=== PATIENT | male | born 2000 | race Caucasian/White ===

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

== ENCOUNTER 2025-02-15 11:30 | Inpatient (IN) ==
[2025-02-15 12:11] LABS: Appearance Urine Clear (Clear); Glucose Urine UA Negative (Negative)
[2025-02-15 12:47] LABS: Hematocrit (blood only) 46.2 % (42.0-52.0); Hemoglobin 15.8 g/dl (14.0-18.0); Immature Granulocytes # (auto) 0.02 K/uL (0.01-0.20); Immature Granulocytes % (auto) 0.2 %; Mean Corpuscular Hemoglobin 28.8 pg (25.0-34.0); Mean Corpuscular Volume 84.3 fL (80.0-100.0); Platelet Count 353 K/uL (130-400); RDW Standard Deviation 36.8 fL (36.4-46.3); Red Blood Count 5.48 M/uL (4.70-6.10); White Blood Count 9.65 K/ul (4.8-10.8)
[2025-02-15 13:00] LABS: Amphetamines+Metham, Urine Neg (Neg); MDMA (Ecstacy), Urine Neg (Neg); Marijuana, Urine Neg (Neg)
[2025-02-15 13:06] LABS: Acetaminophen < 3 ug/ml (10-30); Salicylate < 3.0 mg/dl (3.0-30)
[2025-02-15 13:15] LABS: Albumin Globulin Ratio 1.6 (0.9-2); Anion Gap 14.0 (3-11); Bilirubin,Total 1.7 mg/dl (0.2-1.0); Globulin 3.4 gm/dl (2.5-4.0); Glucose 83.0 mg/dl (70-99(Fasting)); Potassium 4.2 mmol/L (3.5-5.1); Sodium 136.0 mmol/L (136-145); Total Protein 8.7 gm/dl (6.0-8.3)
[2025-02-15 13:19] LABS: Thyroid Stimulating Hormone 1.214 uIu/ml (0.300-4.500)
--- NOTE | 2025-02-15 13:42 | Emergency Department Note ---
History of Present Illness General Chief complaint: Anxiety Stated complaint: LOSS OF APETITE AND ANXIETY/DEPRESSION/WEAKNESS Time Seen by Provider: 02/15/25 11:45 History of Present Illness Provider complaint: Mental health evaluation Maximum Pain Intensity: 2 24-year-old male presents emergency department for mental health evaluation. Patient presents emergency department with his parents. Patient states he is "having a psychological break". He states his has been going on for the last month. Patient states is causing him to eat less. He states he thinks one of his triggers are screen time. He reports suicidal ideation. Patient states he is "bad at existing in life." Home Medications Medication Instructions Recorded Confirmed Type DESLORATADINE (Clarinex) 5 mg PO DAILY ##0 04/23/17 History LORAZEPAM (ATIVAN) 0.5 mg PO TID Anxiety #0 tabs 04/23/17 History MONTELUKAST SODIUM (SINGULAIR) 10 mg PO DAILY ##0 04/23/17 History LAMOTRIGINE 25 mg PO QAM #30 tabs 04/26/17 Rx VENLAFAXINE HCL (EFFEXOR XR) 1 cap PO BID #60 caps 04/26/17 Rx Allergies Allergy/AdvReac Type Severity Reaction Status Date / Time cashew nut Allergy Mild Unverified 04/23/17 00:49 cat dander Allergy Mild Unverified 04/23/17 00:49 dog dander Allergy Mild Unverified 04/23/17 00:49 peanut Allergy Mild Unverified 04/23/17 00:49 walnut Allergy Mild Unverified 04/23/17 00:49 mold Allergy Unknown unknown Verified 07/04/14 07:54 ragweed pollen Allergy Unknown unknown Verified 07/04/14 07:54 Past Med/Surg History Problem List (Updated 02/15/25 @ 17:43 by Duncan Garrett MD) Acute anxiety (Acute) Environmental allergies (Chronic) Dehydration (Acute) Vomiting (Acute) Medical History Asthma, exercise induced Generalized anxiety disorder Depression Social History Smoking Status: Former smoker Preferred Language: Nepali Feels Safe at Home: Yes Gender Identity: Male Physical Exam Vital Signs Vital Signs - 24 hr 02/15/25 11:34 02/15/25 14:34 02/15/25 16:17 Temperature 36.9 C Temperature Source Skin Pulse Rate 108 H Pulse Rate [Right Finger] 76 104 H Pulse Rhythm [Right Finger] Regular Pulse Strength [Right Finger] Normal Respiratory Rate 18 16 16 Respiratory Effort / Characteristics Non-Labored Spontaneous Non-Labored Spontaneous Respiratory Depth Normal Normal Respiratory Pattern Regular Regular Blood Pressure 148/104 H Blood Pressure [Right Arm] 138/86 132/83 Blood Pressure Mean 118 Blood Pressure Mean [Right Arm] 103 99 Blood Pressure Position [Right Arm] Semi-fowlers Pulse Oximetry 96 96 99 Oxygen Delivery Method Room Air Room Air Room Air Sepsis Recent Fever Within 48 Hours No Sepsis New/Unexplained Change in Mental Status N/A Sepsis Action Taken by Nursing No Action Required Physical Exam HENT: Exam performed. - Head: Normocephalic and atraumatic. EYES: Conjunctivae and EOM are normal. Right eye exhibits no discharge. Left eye exhibits no discharge. No scleral icterus. NECK: Normal range of motion. Neck supple. No JVD present. CV: Normal rate, regular rhythm, normal heart sounds and intact distal pulses. There is no peripheral edema. Palpable radial pulses bue. PULM/CHEST: Effort normal and breath sounds normal. No respiratory distress. No stridor. no wheezes. no rales. ABD: The abdomen is soft. There is no tenderness. NEURO: Motor and sensation grossly intact. SKIN: Skin is warm and dry. He is not diaphoretic. Course Course 1145: The patient was evaluated in room A5. A complete history and physical exam was performed 1646: Patient medically cleared. Awaiting psychiatric evaluation and placement. 1720: Patient accepted to 3 S. Administered Medications Discontinued Medications Hydroxyzine HCl (Hydroxyzine Hcl 25 Mg Tab) 25 mg PO NOW STA Stop: 02/15/25 13:18 Last Admin: 02/15/25 13:44 Dose: 25 mg Documented By: JENNIFER Lorazepam (Lorazepam 1 Mg Tab) 1 mg SL NOW STA Stop: 02/15/25 14:26 Last Admin: 02/15/25 15:47 Dose: 1 mg Documented By: DAWAN Medical Decision Making Laboratory Data Attestation: I reviewed the patient's lab results. 02/15/25 12:20 02/15/25 12:20 Lab Results 02/15/25 02/15/25 02/15/25 Range/Units 11:50 11:56 12:20 WBC 9.65 (4.8-10.8) K/ul RBC 5.48 (4.70-6.10) M/uL Hgb 15.8 (14.0-18.0) g/dl Hct 46.2 (42.0-52.0) % MCV 84.3 (80.0-100.0) fL MCH 28.8 (25.0-34.0) pg MCHC 34.2 (32.0-36.0) g/dL RDW Std Deviation 36.8 (36.4-46.3) fL RDW Coeff of Fabiola 12.1 (11.5-14.5) % Plt Count 353 (130-400) K/uL MPV 11.0 (9.4-12.4) fL Immature Gran % (Auto) 0.2 % Neut % (Auto) 75.9 % Lymph % (Auto) 17.7 % O'Brien % (Auto) 5.5 % Eos % (Auto) 0.3 % Baso % (Auto) 0.4 % Neut # (Auto) 7.32 H (1.40-6.50) K/uL Lymph # (Auto) 1.71 (1.20-3.40) K/uL O'Brien # (Auto) 0.53 (0.11-0.59) K/uL Eos # (Auto) 0.03 (0.00-0.50) K/uL Baso # (Auto) 0.04 (0.00-0.20) K/uL Immature Gran # (Auto) 0.02 (0.01-0.20) K/uL Sodium 136 (136-145) mmol/L Potassium 4.2 (3.5-5.1) mmol/L Chloride 101 (98-107) mmol/L Carbon Dioxide 21 (21-32) mmol/L Anion Gap 14 H (3-11) BUN 11 (6-23) mg/dl Creatinine 0.78 (0.6-1.4) mg/dl Est Cr Clr Drug Dosing 158.9 ml/min eGFR 126.92 BUN/Creatinine Ratio 14.1 (10-20) Glucose 83 (70-99(Fasting)) mg/dl Calcium 10.0 (8.6-10.3) mg/dl Total Bilirubin 1.7 H (0.2-1.0) mg/dl AST 19 (13-39) U/L ALT 26 (7-52) U/L Alkaline Phosphatase 97 (34-104) U/L Total Protein 8.7 H (6.0-8.3) gm/dl Albumin 5.3 H (3.4-5.0) gm/dl Globulin 3.4 (2.5-4.0) gm/dl Albumin/Globulin Ratio 1.6 (0.9-2) TSH 1.214 (0.300-4.500) uIu/ml Urine Color Yellow Urine Appearance Clear (Clear) Urine pH 5.5 (4.5-7.5) Ur Specific [place] 1.011 (1.000-1.030) Urine Protein Negative (Negative) Urine Glucose (UA) Negative (Negative) Urine Ketones 4+ H (Negative) Urine Blood Negative (Negative) Urine Nitrite Negative (Negative) Urine Bilirubin Negative (Negative) Urine Urobilinogen Negative (Negative) Ur Leukocyte Esterase Negative (Negative) Urine Comment Salicylates < 3.0 L (3.0-30) mg/dl Urine Opiates Screen Neg (Neg) Ur Methadone, Qual Neg (Neg) Urine Fentanyl Screen Neg (Neg) Acetaminophen < 3 L (10-30) ug/ml Urine Barbiturates Neg (Neg) Ur Phencyclidine (PCP) Neg (Neg) U Amphetamin/Meth Scrn Neg (Neg) MDMA (Ecstasy) Screen Neg (Neg) U Benzodiazepines Scrn Neg (Neg) Ur Cocaine Metabolite Neg (Neg) U Marijuana (THC) Screen Neg (Neg) Ethyl Alcohol mg/dL < 10.0 (<10.0) mg/dl SARS-CoV-2, RNA, NAAT NEGATIVE (NEGATIVE) MDM Narrative 1145: The patient was evaluated in room A5. A complete history and physical exam was performed 1646: Patient medically cleared. Awaiting psychiatric evaluation and placement. 1720: Patient accepted to 3 S. Impression & Plan Acute anxiety Discharge Plan Visit Data Chief Complaint: Anxiety Stated Complaint: LOSS OF APETITE AND ANXIETY/DEPRESSION/WEAKNESS ED Provider: Duncan Garrett Discharge Problem: Acute anxiety Patient Disposition: Admitted As Inpatient Condition: Fair Discharge Instructions Interventions: ED Discharge Assessment Last Done: 02/15/25 17:20
[2025-02-15 13:45] LABS: Alanine Aminotransferase 26.0 U/L (7-52); Alkaline Phosphatase 97.0 U/L (34-104); Blood Urea Nitrogen 11.0 mg/dl (6-23); Calcium 10.0 mg/dl (8.6-10.3); Carbon Dioxide 21.0 mmol/L (21-32); Chloride 101.0 mmol/L (98-107); Creatinine Clr Calc Pharmacy 158.9 ml/min
[2025-02-15] MEDS: LORazepam 1 MG TAB SL STA (15:47)
[2025-02-15] MEDS ORDERED: ACETAMINOPHEN 325 MG TAB PO PRN (17:28)
[2025-02-15] MEDS ORDERED: ALUMINUM/MAGNESIUM SUSP 30 ML UDC PO PRN (17:28)
[2025-02-15] MEDS ORDERED: SODIUM CHLORIDE 0.65% NA SOLN 45 ML (OCEAN) PRN (17:28)
[2025-02-15] MEDS ORDERED: MAGNESIUM HYDROXIDE SUSP 30 ML UDC PO PRN (17:28)
[2025-02-15] MEDS ORDERED: BISMUTH SUBSALICYLATE 262 MG CHEW PO PRN (17:28)
--- NOTE | 2025-02-16 08:50 | History & Physical ---
Date of Service February 16, 2025 Impression / Recommendations Impression ETHAN HUYNH is a 24-year-old man who currently lives in [place] with his parents, has a history of anxiety, depression, and was admitted on 02/15/25 17:23 on a 201 voluntary commitment for depression with SI, severe anxiety with panic attacks and unable to sleep or eat much. Diagnostically consistent with major depressive disorder with possible psychotic features as well as generalized anxiety disorder with panic attacks and agoraphobia as well as panic disorder with agoraphobia as well as suspected obsessive compulsive disorder. Also wonder about autism spectrum disorder though he is not interested in further screening for this, he expresses that more psychiatric diagnoses will damage his already low self-esteem and cause him to feel more hopeless. Suspect his derealization and depersonalization are due to severe anxiety but could also be due to PTSD especially given report prominent night terrors though could be he is having nighttime panic attacks. No current concerns for substance use disorder contributing in any way to his symptoms. Possible recent psychogenic nonepileptic seizure event given report of it occurring alongside a panic attack a few months ago so will recommend further outpatient neurology workup given reported family history of sister with epilepsy and some seizures can present with prominent derealization, feelings of espinoza-vu and accompanying fear/terror description. Discussed medication treatment options in detail. Discussed risks, benefits and alternatives. Patient would like to start and consented to an SSRI vs SNRI but he's going to confirm which medication his father and sister have been taking, propranolol for off-label use for anxiety/PTSD/panic symptoms, buspar for BHARATH, ativan prn for panic attacks, and mirtazapine for BHARATH/MDD. He's not interested in starting an antipsychotic medication at this time and past trials were non- beneficial and if he is having seizures (especially after stopping lamictal) then possible that these can lower threshold and make symptoms worse. Reviewed side effects including but not limited to: sedation/increased appetite with mirtazapine, low BP/syncope with propranolol, dizziness with buspar, addictive potential/sedation/not mixing with alcohol with ativan. Overall I spent a total of 90 minutes for this admission including review of chart records, review of labwork, direct evaluation of the patient, counseling the patient, ordering medication, risk assessment, discussion with the psychiatric liason RN and documentation in the electronic health record. (1) Depression with suicidal ideation: (2) MDD (major depressive disorder), recurrent episode, severe: (3) Obsessive compulsive disorder: (4) Generalized anxiety disorder with panic attacks: (5) Panic disorder with agoraphobia and severe panic attacks: (6) Insomnia: (7) Poor appetite: (8) Derealization: Plan 02/16/2025: The patient was admitted to the [facility] ([facility] unit) on q15 min checks (behavioral with suicide precautions) for safety. The patient will participate in group, recreational, and milieu therapies and will be offered additional individual and family sessions as clinically appropriate. -Start propranolol 10mg TID -Start buspar 5mg TID -Ativan 0.5mg BID prn for panic attacks -mirtazapine 15mg HS -plan for SSRI vs SNRI tomorrow pending his discussion with family -SW to look into outpatient therapy options such as IOP for CBT -Symptom questionnaires provided -Outpatient neurology referral vs inpatient EEG consideration Inventory Assets Strengths: supportive relationships, willing to get treatment Needs: safety and stabilization, medication adjustment, additional coping skills, increased outpatient services Suicide Risk Level Suicide Risk Level: High-Moderate (q15 min suicide checks) (severe depression with possible psychotic features, severe panic attacks but feels safe in the hospital and feels able to ask for support) Risk Factors Assessment Male: Yes : Yes Do You Have Access To A Gun?: No Health Problems: No Mental Health Diagnoses: Yes Substance Use Disorders: No Previous Attempt: No Family History of Suicide: No Previous Psychiatric Hospitalization: Yes Hopelessness: Yes Protective Factors Assessment : No Responsible for Young Children: No Employed: No Stable Relationships: Yes Supportive Family: Yes Psychiatric History Identifying Data ETHAN HUYNH is a 24-year-old man who currently lives in [place] with his parents, has a history of anxiety, depression, and was admitted on 02/15/25 17:23 on a 201 voluntary commitment for depression with SI, severe anxiety with panic attacks and unable to sleep or eat much. Chief Complaint "I've dug myself a hole I can't get out of". History of Present Illness Joaquim presents for psychiatric admission for worsening anxiety, depression with suicidal ideation, poor sleep, very poor appetite and paranoia with intense mood swings, social isolation and agoraphobia in the context of multiple psychosocial stressors including loss of friendships, increased screen time, discontinuation of psychiatric medications about 6 months ago and current state of the world/world events. He reports experiencing acute anxiety with intense mood swings related to his anxiety and perceptions. He describes feeling sad and adequate" not enough" in a way that makes him "difficult to be around". He experience periods of terror and confusion lasting a couple of hours during which she becomes scared of small things and feels that people are saying things they do not mean or putting themselves in harm's way. He reports seeing patterns that are not real and perceiving double meanings in words which confuse and terrify him. He struggles to provide concrete examples of this eventually stating that talking about his concerns makes him feel as though bad things will occur. Describes a close group of friends in college and playing in a band with friends but reports he hasn't been able to maintain his friendships due to his worsening mood over the last six months. His anxiety has led to agoraphobia with Joaquim rarely leaving his house since August. He reports only leaving once a week to see friends initially but eventually "lost encouraged to do so". He estimates he had not left the house in the last 3 to 4 weeks before coming to the hospital last night. His isolation has resulted in worsening mood symptoms. He reports a total loss of appetite and difficulty eating due to what he describes as "general existential tear". Joaquim also experiences depersonalization and derealization feeling that everything he understands does not add up with reality anymore. He endorses severe depression as a result of his anxiety and also due to the state of the world. He's had issues sleeping, low appetite, hopelessness, helplessness, low self-worth, guilt and SI though states he would never act on these thoughts as it would negatively impact his family. He describes not und erstanding how anyone could not be depressed with the current state of things. Joaquim reports nightly night terrors where he wakes up short of breath and sweaty. He also experienced daily flashbacks, which have increased since his admission to the hospital. He describes his mental health as having "spiraled into something I do not understand" over the past 6 months leading to "idiosyncratic and absurd behaviors that have made it impossible to maintain friendships and relationships". He expresses significant distress about his current hospitalization stating that his previous admission in 2017 "ruined his life" and left him feeling uncomfortable and scared. Despite this he acknowledges the need for treatment to improve his condition and relationships with others and that he is here to help with the people he lops. He reports discontinuing his psychiatric medications about 6 months ago which included Lamictal and Effexor. He has tried various medications with limited effectiveness or side effects. He is willing to try new medications and engage in outpatient therapy upon discharge. He has a history of substance use to cope with his symptoms at times but states he has not used alcohol for about a year and no other substance use. Psychiatric review of symptoms notable for anxiety depression and panic attacks mood swings intrusive thoughts flashbacks night terrors derealization depersonalization. History of OCD tendencies and PTSD symptoms. Possible history of hypomania though seems the symptoms more were on a time course of a few hours rather than lasting for days of the time. He identifies target symptoms of: "I just want to be stable so I can go build a simple life". He finds his anxiety, depression and fear makes it "so words have double meanings and things have a different meaning then they should". He describes being very socially isolated and that "the paranoia" and "feeling of being on the outside of some big joke" is what he wants to fix. He notes a lot of mood fluctuations thought the day typically "a lot of terror and confusion". He "becomes scared of small things". Psychiatric ROS notable for no current nor history of symptoms of self-harm (th ough did pick skin at times due to acne). In the last month he's had periods of less need for sleep and wonders about influence in the past of making him have higher energy and use substances but no other history of dylan. Reports PTSD from past traumatic experiences with derealization, night terrors (nightly), flashbacks (limited in the last few weeks), avoidance. History of poor appetite but no purposeful restriction. Past Psychiatric History Previous Psych History: bipolar questioned in the past, Current Psychiatric Diagnosis: UNSPECIFIED MOOD DISORDER Outpatient Services: none currently Previous Psych Admissions: [facility] in 2017 Do You Have Access To A Gun?: No History of Previous Suicide Attempt: No (near attempt in 2017, was considering hanging himself but sought tx) Past Medication Trials: lamictal and Effexor for ~4 years but stopped after rash and skin issues (took while in college) Antidepressants: Pristiq, lexapro, Effexor, Wellbutrin (anxiety worse) Vraylar (heart palpitations), Abilify (very bad) Xanax, Vistaril, Ativan Past Head Trauma/Neuro History History of Concussion/Seizure: Yes concussion in 7th grade playing ice hockey; seizure in Aug 2024 (panic attack preceeded) Allergies Allergy/AdvReac Type Severity Reaction Status Date / Time cashew nut Allergy Mild Unverified 04/23/17 00:49 cat dander Allergy Mild Unverified 04/23/17 00:49 dog dander Allergy Mild Unverified 04/23/17 00:49 peanut Allergy Mild Unverified 04/23/17 00:49 walnut Allergy Mild Unverified 04/23/17 00:49 mold Allergy Unknown unknown Verified 07/04/14 07:54 ragweed pollen Allergy Unknown unknown Verified 07/04/14 07:54 Home Medications Medication Instructions Recorded Confirmed Type DESLORATADINE (Clarinex) 5 mg PO DAILY ##0 04/23/17 History LORAZEPAM (ATIVAN) 0.5 mg PO TID Anxiety #0 tabs 04/23/17 History MONTELUKAST SODIUM (SINGULAIR) 10 mg PO DAILY ##0 04/23/17 History LAMOTRIGINE 25 mg PO QAM #30 tabs 04/26/17 Rx VENLAFAXINE HCL (EFFEXOR XR) 1 cap PO BID #60 caps 04/26/17 Rx Family History Family History of: Anxiety (father and sister -both on buspar) and Other-List under Comment (OCD) Family Mental Health History Comment: Alcohol History Hx of Alcohol Use Over the Past 12 Months: No AUDIT Total Score: 1 Smoking Use Have You Smoked or Used Tobacco Products in the Last 30 Days: No tobacco type: cigarettes Smoking Status: Former smoker Substance History Hx of Prescription Med Misuse Over the Past 12 Months: No Hx of Over the Counter Med Misuse Over the Past 12 Months: No Hx of Inhalent Misuse Over the Past 12 Months: No Hx of Organic Substance Use Over the Past 12 Months: No Hx of Illegal Substances/Street Drug Use Over Past 12 Months: No Problems as a Result of Past Substance Use: None Identified Problems as a Result of Past Substance Use Comments: Worsening of mental health Personal History Living Arrangements: Home Childhood: IEP for dyslexia and auditory processing disorder Highest Grade Completed: College ([employer]) Employment Status: Unemployed Marital Status: Single Beliefs That Will Affect Care: None Current Legal Problems: No Hx Legal Problems: No Hx Traumatic Life Events: Yes Patient History Medical History Asthma, exercise induced Generalized anxiety disorder Depression Social History Smoking Status: Former smoker Preferred Language: Serbian Communication Ability: Effective Gusset Edger Required: No Beliefs That Will Affect Care: None Feels Safe at Home: Yes Gender Identity: Male Assistive Devices: None Review of Systems Review of Systems: All systems reviewed & are unremarkable except as noted in HPI & below Physical Exam Psychiatric: Orientation: alert and oriented x 3 Apperance: appropriately dressed and appropriately groomed Eye Contact: + poor eye contact Motor Behavior: no abnormal motor movements Speech: normal rate/rhythm/volume of speech Affect: + depressed affect, + anxious affect and + tearful affect Mood: + depressed mood and + anxious mood Thought Process: + circumstantial thought process Thought Content: reality based without delusions Suicidal Thoughts: denies suicidal plan and denies suicidal intent; + reports suicidal thoughts Homicidal Thoughts: denies homicidal thoughts Hallucinations: no auditory hallucinations and no visual hallucinations Cognition: recent memory grossly intact, remote memory grossly intact, attention grossly intact and language grossly intact Estimated Intelligence: consistent with education level Insight: + fair insight Judgment: + fair judgement Vital Signs (Past 24 Hours): Last Vital Signs Temp 36.7 C 02/16/25 06:22 Pulse 111 H 02/16/25 06:23 Resp 16 02/16/25 06:22 BP 124/87 02/16/25 06:23 Pulse Ox 98 02/15/25 17:26 O2 Del Method Room Air 02/15/25 17:26 Exam Statement: A physical exam was performed in the ED by Dr. Garrett for the purposes of medical clearance. I accept that physical as correct and adequate for the purposes of the inpatient physical exam. Results & Data (U) Laboratory Results Laboratory Results - last 24 hr 02/15/25 02/15/25 02/15/25 11:50 11:56 12:20 WBC 9.65 RBC 5.48 Hgb 15.8 Hct 46.2 MCV 84.3 MCH 28.8 MCHC 34.2 RDW Std Deviation 36.8 RDW Coeff of Fabiola 12.1 Plt Count 353 MPV 11.0 Immature Gran % (Auto) 0.2 Neut % (Auto) 75.9 Lymph % (Auto) 17.7 [place] % (Auto) 5.5 Eos % (Auto) 0.3 Baso % (Auto) 0.4 Neut # (Auto) 7.32 H Lymph # (Auto) 1.71 [place]lier # (Auto) 0.53 Eos # (Auto) 0.03 Baso # (Auto) 0.04 Immature Gran # (Auto) 0.02 Sodium 136 Potassium 4.2 Chloride 101 Carbon Dioxide 21 Anion Gap 14 H BUN 11 Creatinine 0.78 Est Cr Clr Drug Dosing 158.9 eGFR 126.92 BUN/Creatinine Ratio 14.1 Glucose 83 Calcium 10.0 Total Bilirubin 1.7 H AST 19 ALT 26 Alkaline Phosphatase 97 Total Protein 8.7 H Albumin 5.3 H Globulin 3.4 Albumin/Globulin Ratio 1.6 TSH 1.214 Urine Color Yellow Urine Appearance Clear Urine pH 5.5 Ur Specific [place] 1.011 Urine Protein Negative Urine Glucose (UA) Negative Urine Ketones 4+ H Urine Blood Negative Urine Nitrite Negative Urine Bilirubin Negative Urine Urobilinogen Negative Ur Leukocyte Esterase Negative Urine Comment Salicylates < 3.0 L Urine Opiates Screen Neg Ur Methadone, Qual Neg Urine Fentanyl Screen Neg Acetaminophen < 3 L Urine Barbiturates Neg Ur Phencyclidine (PCP) Neg U Amphetamin/Meth Scrn Neg MDMA (Ecstasy) Screen Neg U Benzodiazepines Scrn Neg Ur Cocaine Metabolite Neg U Marijuana (THC) Screen Neg Ethyl Alcohol mg/dL < 10.0 SARS-CoV-2, RNA, NAAT NEGATIVE Current Inpatient Medications Current Inpatient Medications: Current Inpatient Medications Acetaminophen (Acetaminophen 325 Mg Tab) 650 mg PO Q4H PRN PRN Reason: Headache or Minor Fever Stop: 03/17/25 17:27 Al Hydrox/Mg Hydrox/Simethicone (Aluminum/Magnesium Susp 30 Ml Udc) 30 ml PO Q4H PRN PRN Reason: GI Upset Stop: 03/17/25 17:27 Bismuth Subsalicylate (Bismuth Subsalicylate 262 Mg Chew) 2 tab PO Q30M PRN PRN Reason: Loose Stool/Diarrhea Stop: 03/17/25 17:27 Hydroxyzine HCl (Hydroxyzine Hcl 25 Mg Tab) 50 mg PO HSZ PRN PRN Reason: Insomnia Stop: 03/17/25 17:27 Hydroxyzine HCl (Hydroxyzine Hcl 25 Mg Tab) 25 mg PO Q4H PRN PRN Reason: Anxiety Stop: 03/17/25 17:27 Magnesium Hydroxide (Magnesium Hydroxide Susp 30 Ml Udc) 30 ml PO DAILY PRN PRN Reason: Constipation Stop: 03/17/25 17:27 Sodium Chloride (Sodium Chloride 0.65% Na Soln 45 Ml ([place])) 1 - 2 sprays NA PRN PRN PRN Reason: Nasal Dryness/Congestion Stop: 03/17/25 17:27
[2025-02-16] MEDS: PROPRANOLOL HCL 10 MG TAB PO SCH (15:56)
[2025-02-16] MEDS: busPIRone 5 MG TAB PO SCH (15:56)
[2025-02-16] MEDS: MIRTAZAPINE TAB 15 MG TAB PO SCH (22:14)
--- NOTE | 2025-02-17 09:47 | Psychiatric Progress Note ---
Date of Service February 17, 2025 Impression / Recommendations Impression ETHAN HUYNH is a 24-year-old man who currently lives in [place] with his parents, has a history of anxiety, depression, and was admitted on 02/15/25 17:23 on a 201 voluntary commitment for depression with SI, severe anxiety with panic attacks and unable to sleep or eat much. Diagnostically consistent with major depressive disorder with possible psychotic features as well as generalized anxiety disorder with panic attacks and agoraphobia as well as panic disorder with agoraphobia as well as suspected obsessive compulsive disorder. Also wonder about autism spectrum disorder though he is not interested in further screening for this, he expresses that more psychiatric diagnoses will damage his already low self-esteem and cause him to feel more hopeless. Suspect his derealization and depersonalization are due to severe anxiety but could also be due to PTSD especially given report prominent night terrors though could be he is having nighttime panic attacks. No current concerns for substance use disorder contributing in any way to his symptoms. Possible recent psychogenic nonepileptic seizure event given report of it occurring alongside a panic attack a few months ago so will recommend further o utpatient neurology workup given reported family history of sister with epilepsy and some seizures can present with prominent derealization, feelings of espinoza-vu and accompanying fear/terror description. A: Ongoing severe anxiety with panic and depression but lessening concern for psychotic features and tolerating intense exposure of being in the hospital and around peers and future-oriented with hopefulness. Slept poorly last night. Tolerating medication changes so far and finding some benefit during the day. No evidence for muscle movement abnormalities or other signs of seizure events. Sym ptom questionnaires were hammer positive including BHARATH-7: 17, PHQ-9: 15, Y-BOCS: 26, Internation trauma questionnaire: high, BPD: +, mood disorder: +, LEILANI: 2. Discussed medication treatment options in detail. Discussed risks, benefits and alternatives. He consents to trial of sertraline for OCD, BHARATH, panic disorder and MDD. Reviewed side effects including but not limited to: GI, HARPER, sexual side effects. Overall, I spent a total of 35 minutes on this case including meeting with the patient, reviewing the chart, nursing report, multidisciplinary team meeting, orders, and documentation. (1) Depression with suicidal ideation: (2) MDD (major depressive disorder), recurrent episode, severe: (3) Obsessive compulsive disorder: (4) Generalized anxiety disorder with panic attacks: (5) Panic disorder with agoraphobia and severe panic attacks: (6) Insomnia: (7) Poor appetite: (8) Derealization: Plan 02/17/2025: -Start sertraline 50mg daily 02/16/2025: The patient was admitted to the [facility] on q15 min checks (behavioral with suicide precautions) for safety. The patient will participate in group, recreational, and milieu therapies and will be offered additional individual and family sessions as clinically appropriate. -Start propranolol 10mg TID -Start buspar 5mg TID -Ativan 0.5mg BID prn for panic attacks -mirtazapine 15mg HS -plan for SSRI vs SNRI tomorrow pending his discussion with family -SW to look into outpatient therapy options such as IOP for CBT -Symptom questionnaires provided -Outpatient neurology referral vs inpatient EEG consideration Inventory Assets Strengths: supportive relationships, willing to get treatment Needs: safety and stabilization, medication adjustment, additional coping skills, increased outpatient services Suicide Risk Level Suicide Risk Level: Moderate (q15 min suicide checks) (severe depression, severe panic attacks but feels safe in the hospital and feels able to ask for support) Risk Factors Assessment Male: Yes : Yes Do You Have Access To A Gun?: No Health Problems: No Mental Health Diagnoses: Yes Substance Use Disorders: No Previous Attempt: No Family History of Suicide: No Previous Psychiatric Hospitalization: Yes Hopelessness: Yes Protective Factors Assessment : No Responsible for Young Children: No Employed: No Stable Relationships: Yes Supportive Family: Yes Interval History Identifying Information ETHAN HUYNH is a 24-year-old man who currently lives in [place] with his parents, has a history of anxiety, depression, and was admitted on 02/15/25 17:23 on a 201 voluntary commitment for depression with SI, severe anxiety with panic attacks and unable to sleep or eat much. Chief Complaint "I'm not going to quit in the face of fear". Review of Systems Sleep Information Total Hours of Sleep: 3.25 Meal Information Percent Meal Consumed - Breakfast: 100 Percent Meal Consumed - Lunch: 100 Percent Meal Consumed - Dinner: 100 Subjective Subjective Patient was seen & assessed and interval progress reviewed with nursing and social work. Very anxious and got multiple prns of Vistaril. Got very anxious after getting stuck in the shower and struggling to get out of the room. Utilized prn ativan after this. Was able to process with staff. Attending groups, rated his mood as "confused". Eating well. He reports poor sleep due to feeling anxious about having a roommate and feeling unsafe due to past experience of psychiatric hospitalization. But he reports feeling supported but that being in the hospital is his "worst fear realized". Today has "a lot of anxiety" but eager to try additional medications and do [facility] IOP. He was not able to ask his family about SSRI or SNRI options but is agreeable to trying sertraline. Physical Exam Psychiatric Orientation: alert and oriented x 3 Apperance: appropriately dressed and appropriately groomed Eye Contact: + poor eye contact Motor Behavior: no abnormal motor movements Speech: normal rate/rhythm/volume of speech Affect: + depressed affect and + anxious affect Mood: + depressed mood and + anxious mood Thought Process: goal directed thought process Thought Content: reality based without delusions Suicidal Thoughts: denies suicidal plan and denies suicidal intent; + reports s uicidal thoughts Homicidal Thoughts: denies homicidal thoughts Hallucinations: no auditory hallucinations and no visual hallucinations Cognition: recent memory grossly intact, remote memory grossly intact, attention grossly intact and language grossly intact Estimated Intelligence: consistent with education level Insight: + fair insight Judgment: + fair judgement Vital Signs (Past 24 Hours) Last Vital Signs Temp 36.4 C L 02/17/25 06:27 Pulse 98 H 02/17/25 06:28 Resp 18 02/17/25 06:27 BP 128/87 02/17/25 06:28 Pulse Ox 98 02/15/25 17:26 O2 Del Method Room Air 02/15/25 17:26 Results & Data ([facility]) Current Inpatient Medications Current Inpatient Medications: Current Inpatient Medications Acetaminophen (Acetaminophen 325 Mg Tab) 650 mg PO Q4H PRN PRN Reason: Headache or Minor Fever Stop: 03/17/25 17:27 Al Hydrox/Mg Hydrox/Simethicone (Aluminum/Magnesium Susp 30 Ml Udc) 30 ml PO Q4H PRN PRN Reason: GI Upset Stop: 03/17/25 17:27 Bismuth Subsalicylate (Bismuth Subsalicylate 262 Mg Chew) 2 tab PO Q30M PRN PRN Reason: Loose Stool/Diarrhea Stop: 03/17/25 17:27 Buspirone HCl (Buspirone 5 Mg Tab) 5 mg PO TID HAYLEY Stop: 03/18/25 13:59 Last Admin: 02/17/25 08:44 Dose: 5 mg Hydroxyzine HCl (Hydroxyzine Hcl 25 Mg Tab) 50 mg PO HSZ PRN PRN Reason: Insomnia Stop: 03/17/25 17:27 Hydroxyzine HCl (Hydroxyzine Hcl 25 Mg Tab) 25 mg PO Q4H PRN PRN Reason: Anxiety Stop: 03/17/25 17:27 Last Admin: 02/17/25 08:54 Dose: 25 mg Lorazepam (Lorazepam 0.5 Mg Tab) 0.5 mg PO BID PRN PRN Reason: panic attack Stop: 03/18/25 11:21 Magnesium Hydroxide (Magnesium Hydroxide Susp 30 Ml Udc) 30 ml PO DAILY PRN PRN Reason: Constipation Stop: 03/17/25 17:27 Mirtazapine (Mirtazapine Tab 15 Mg Tab) 15 mg PO HS HAYLEY Stop: 03/18/25 21:59 Last Admin: 02/16/25 22:14 Dose: 15 mg Propranolol HCl (Propranolol Hcl 10 Mg Tab) 10 mg PO TID HAYLEY Stop: 03/18/25 13:59 Last Admin: 02/17/25 08:44 Dose: 10 mg Sodium Chloride (Sodium Chloride 0.65% Na Soln 45 Ml ([place])) 1 - 2 sprays NA PRN PRN PRN Reason: Nasal Dryness/Congestion Stop: 03/17/25 17:27 Mental Health & Subst Abuse Tx Psychiatrist Name of Psychiatrist: [facility] Date Of Appointment With Psychiatric Provider: 03/05/2025 Time of Appointment with Psychiatrist: 2:50PM - 1.5 hour intial session Psychiatric Appointment Comment: [facility] - Cancel 24 hours in advance - $20 Copay Therapist Name of Therapist: Karley Peña [facility] Therapist's Phone Number: Date of Therapist Appointment: 02/26/25 Time of Therapist Appointment: 1:00PM Therapy Appointment Comment: [employer] indicated that an email was sent to pt. email. Post Discharge Appointments Primary Care Physician Name Of Family Doctor/PCP: UNKNOWN Contact Information Discharge Discharge Address: [address] [place] [address], [place] [address]
[2025-02-17] MEDS: SERTRALINE HCL 50 MG TABLET PO SCH (12:55)
[2025-02-18] MEDS: LORazepam 0.5 MG TAB PO PRN (12:45)
--- NOTE | 2025-02-18 13:23 | Psychiatric Progress Note ---
Date of Service February 18, 2025 Impression / Recommendations Impression ETHAN HUYNH is a 24-year-old man who currently lives in [place] with his parents, has a history of anxiety, depression, and was admitted on 02/15/25 17:23 on a 201 voluntary commitment for depression with SI, severe anxiety with panic attacks and unable to sleep or eat much. Diagnostically consistent with major depressive disorder with possible psychotic features as well as generalized anxiety disorder with panic attacks and agoraphobia as well as panic disorder with agoraphobia as well as suspected obsessive compulsive disorder. Also wonder about autism spectrum disorder though he is not interested in further screening for this, he expresses that more psychiatric diagnoses will damage his already low self-esteem and cause him to feel more hopeless. Suspect his derealization and depersonalization are due to severe anxiety but could also be due to PTSD especially given report prominent night terrors though could be he is having nighttime panic attacks. No current concerns for substance use disorder contributing in any way to his symptoms. Possible recent psychogenic nonepileptic seizure event given report of it occurring alongside a panic attack a few months ago so will recommend further o utpatient neurology workup given reported family history of sister with epilepsy and some seizures can present with prominent derealization, feelings of espinoza-vu and accompanying fear/terror description. A: Pt reports high anxiety which is chronic and ongoing for many years, and was observed to have panic attacks by staff last night. Today, he reports feeling less anxious with improved mood (note long standing persistent depressive symptoms described today as low-grade). Possible contribution of THC to longstanding mood and anxiety symptoms. Remains hopeful and future oriented today with no reported or observed psychotic features. He is observed to participate in groups, indicating tolerance for the exposure of being in the hospital and around peers and future-oriented. Sleep appears to be improving. No medication side effects reported. Overall, I spent a total of 35 minutes on this case including meeting with the patient, reviewing the chart, nursing report, multidisciplinary team meeting, orders, and documentation. (1) Depression with suicidal ideation: (2) MDD (major depressive disorder), recurrent episode, severe: (3) Obsessive compulsive disorder: (4) Generalized anxiety disorder with panic attacks: (5) Panic disorder with agoraphobia and severe panic attacks: (6) Insomnia: (7) Poor appetite: (8) Derealization: Plan 02/18/25: Continue current medication regimen Mirtazapine 15mg qhs, Buspar 5 mg tid, Propanolol 10 mg tid and Zoloft 50mg daily. Pt is willing to extend his admission to allow further monitoring and medication adjustment. ELOS 2-3 days. 02/17/2025: -Start sertraline 50mg daily 02/16/2025: The patient was admitted to the [facility] ([facility] mental health unit) on q15 min checks (behavioral with suicide precautions) for safety. The patient will participate in group, recreational, and milieu therapies and will be offered additional individual and family sessions as clinically ap propriate. -Start propranolol 10mg TID -Start buspar 5mg TID -Ativan 0.5mg BID prn for panic attacks -mirtazapine 15mg HS -plan for SSRI vs SNRI tomorrow pending his discussion with family -SW to look into outpatient therapy options such as IOP for CBT -Symptom questionnaires provided -Outpatient neurology referral vs inpatient EEG consideration Inventory Assets Strengths: supportive relationships, willing to get treatment Needs: safety and stabilization, medication adjustment, additional coping skills, increased outpatient services Suicide Risk Level Suicide Risk Level: Low (q15 min observation checks) (severe depression, severe panic attacks but feels safe in the hospital and feels able to ask for support) Risk Factors Assessment Male: Yes : Yes Do You Have Access To A Gun?: No Health Problems: No Mental Health Diagnoses: Yes Substance Use Disorders: No Previous Attempt: No Family History of Suicide: No Previous Psychiatric Hospitalization: Yes Hopelessness: Yes Protective Factors Assessment : No Responsible for Young Children: No Employed: No Stable Relationships: Yes Supportive Family: Yes Interval History Identifying Information ETHAN HUYNH is a 24-year-old man who currently lives in [place] with his parents, has a history of anxiety, depression, and was admitted on 02/15/25 17:23 on a 201 voluntary commitment for depression with SI, severe anxiety with panic attacks and unable to sleep or eat much. Chief Complaint "I felt more anxious yesterday". Review of Systems Sleep Information Total Hours of Sleep: 6.5 Meal Information Percent Meal Consumed - Breakfast: 100 Percent Meal Consumed - Lunch: 100 Percent Meal Consumed - Dinner: 0 Nutrition Comment: pt declined dinner at this time Subjective Subjective Patient was seen & assessed and interval progress reviewed with nursing and social work. Pt reports he was notably more anxious yesterday; he had a panic attack and endorses light headedness. He attributes this to chemical imbalance from changing meds. Feels a lot better today. No medication side effects at this time. Endorses longstanding anxiety and depressive symptoms dating back many years with multiple med trials. He also endorses recent agoraphobia. Anxiety varies in intensity, day day. Typically high all the time. Anxiety is scored 7/10 today. Depression is also consistent, but he describes this as low grade guilt, hopelessness, sadness, anhedonia, lack of energy, lack of appetite. Denied SI at this time. Has had several episodes of de-realization where things seem "distant, blurry or loose". He has never lost consciousness during these episodes (10 thus far). Currently on Zoloft, Mirtazapine, Buspar, Inderal and prn Vistaril. Per Dr Raines's note, Symptom questionnaires were hammer positive including BHARATH-7: 17, PHQ-9: 15, Y-BOCS: 26, Internation trauma questionnaire: high, BPD: +, mood disorder: +, LEILANI: 2. Psychiatric History: Has had multiple psychiatric admissions in the past. Endo rses prior trials of therapy including 6 months of CBT which was not very helpful. CARINA History: He admits that he used cannabis and ETOH pretty heavily from 16- 23. He used THC daily and drank daily. Last use was over a year ago. Psychosocial History: He graduated college but has not been able to hold down a job. Wants to be discharged tomorrow as he does not find the environment conducive to his mental health. Physical Exam Psychiatric Orientation: alert and oriented x 3 Apperance: appropriately dressed and appropriately groomed Eye Contact: good eye contact and + poor eye contact Motor Behavior: no abnormal motor movements Speech: normal rate/rhythm/volume of speech Affect: + depressed affect and + anxious affect Mood: + depressed mood and + anxious mood Thought Process: goal directed thought process, linear/logical thought process and clear/coherent thought process Thought Content: reality based without delusions Suicidal Thoughts: denies suicidal plan and denies suicidal intent; + reports suicidal thoughts Homicidal Thoughts: denies homicidal thoughts Hallucinations: no auditory hallucinations and no visual hallucinations Cognition: recent memory grossly intact, remote memory grossly intact, attention grossly intact and language grossly intact Estimated Intelligence: consistent with education level Insight: + fair insight Judgment: + fair judgement Vital Signs (Past 24 Hours) Last Vital Signs Temp 36.4 C L 02/18/25 06:24 Pulse 69 02/18/25 08:48 Resp 18 02/18/25 08:48 BP 127/87 02/18/25 08:48 Pulse Ox 96 02/18/25 08:48 O2 Del Method Room Air 02/18/25 08:48 Results & Data ([facility]) Current Inpatient Medications Current Inpatient Medications: Current Inpatient Medications Acetaminophen (Acetaminophen 325 Mg Tab) 650 mg PO Q4H PRN PRN Reason: Headache or Minor Fever Stop: 03/17/25 17:27 Al Hydrox/Mg Hydrox/Simethicone (Aluminum/Magnesium Susp 30 Ml Udc) 30 ml PO Q4H PRN PRN Reason: GI Upset Stop: 03/17/25 17:27 Bismuth Subsalicylate (Bismuth Subsalicylate 262 Mg Chew) 2 tab PO Q30M PRN PRN Reason: Loose Stool/Diarrhea Stop: 03/17/25 17:27 Buspirone HCl (Buspirone 5 Mg Tab) 5 mg PO TID HAYLEY Stop: 03/18/25 13:59 Last Admin: 02/18/25 08:50 Dose: 5 mg Hydroxyzine HCl (Hydroxyzine Hcl 25 Mg Tab) 50 mg PO HSZ PRN PRN Reason: Insomnia Stop: 03/17/25 17:27 Hydroxyzine HCl (Hydroxyzine Hcl 25 Mg Tab) 25 mg PO Q4H PRN PRN Reason: Anxiety Stop: 03/17/25 17:27 Last Admin: 02/17/25 08:54 Dose: 25 mg Lorazepam (Lorazepam 0.5 Mg Tab) 0.5 mg PO BID PRN PRN Reason: panic attack Stop: 03/18/25 11:21 Last Admin: 02/18/25 12:45 Dose: 0.5 mg Magnesium Hydroxide (Magnesium Hydroxide Susp 30 Ml Udc) 30 ml PO DAILY PRN PRN Reason: Constipation Stop: 03/17/25 17:27 Mirtazapine (Mirtazapine Tab 15 Mg Tab) 15 mg PO HS HAYLEY Stop: 03/18/25 21:59 Last Admin: 02/17/25 21:22 Dose: 15 mg Propranolol HCl (Propranolol Hcl 10 Mg Tab) 10 mg PO TID HAYLEY Stop: 03/18/25 13:59 Last Admin: 02/18/25 08:50 Dose: 10 mg Sertraline HCl (Sertraline Hcl 50 Mg Tablet) 50 mg PO QAM HAYLEY Stop: 03/19/25 12:44 Last Admin: 02/18/25 08:50 Dose: 50 mg Sodium Chloride (Sodium Chloride 0.65% Na Soln 45 Ml ([place])) 1 - 2 sprays NA PRN PRN PRN Reason: Nasal Dryness/Congestion Stop: 03/17/25 17:27 Mental Health & Subst Abuse Tx Psychiatrist Name of Psychiatrist: [facility] Psychiatrist's Date Of Appointment With Psychiatric Provider: 03/05/2025 Time of Appointment with Psychiatrist: 2:50PM - 1.5 hour intial session Psychiatric Appointment Comment: [facility] - Cancel 24 hours in advance - $20 Copay Therapist Name of Therapist: [facility] Phone Number: Date of Therapist Appointment: 02/26/25 Time of Therapist Appointment: 1:00PM Therapy Appointment Comment: [employer] indicated that an email was sent to pt. email. Post Discharge Appointments Primary Care Physician Name Of Family Doctor/PCP: UNKNOWN Contact Information Discharge Discharge Address: [address] [place] [address]
[2025-02-18] MEDS: LORazepam 0.5 MG TAB ONE (18:16)
[2025-02-18] MEDS: LORazepam 0.5 MG TAB PO STA (18:16)
[2025-02-19] MEDS: busPIRone 5 MG TAB PO SCH (08:40)
[2025-02-19] MEDS: clonazePAM 0.5 MG TAB PO SCH (08:41)
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
[2025-02-21 08:34] LABS: Hemoglobin A1C 5.4 % (4.5-5.6)
[2025-02-21 08:35] LABS: Cholesterol 106.0 mg/dl (0-200); HDL Cholesterol 36.0 mg/dl; Triglycerides 72.0 mg/dl (0-150)
[2025-02-21] MEDS: SERTRALINE HCL 100 MG TABLET PO SCH (10:10)
[2025-02-21] MEDS: LURASIDONE HCL 20 MG TAB PO SCH (10:11)
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
[2025-02-21] MEDS: clonazePAM 0.5 MG TAB PO SCH (21:31)
[2025-02-22] MEDS: LURASIDONE HCL 20 MG TAB PO SCH (08:26)
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
[2025-02-22] MEDS: clonazePAM 0.5 MG TAB PO SCH (21:42)
--- NOTE | 2025-02-23 13:32 | Discharge Summary ---
Date of Service February 23, 2025 History of Present Illness Joaquim presents for psychiatric admission for worsening anxiety, depression with suicidal ideation, poor sleep, very poor appetite and paranoia with intense mood swings, social isolation and agoraphobia in the context of multiple psychosocial stressors including loss of friendships, increased screen time, discontinuation of psychiatric medications about 6 months ago and current state of the world/world events. He reports experiencing acute anxiety with intense mood swings related to his anxiety and perceptions. He describes feeling sad and adequate" not enough" in a way that makes him "difficult to be around". He experience periods of terror and confusion lasting a couple of hours during which she becomes scared of small things and feels that people are saying things they do not mean or putting themselves in harm's way. He reports seeing patterns that are not real and perceiving double meanings in words which confuse and terrify him. He struggles to provide concrete examples of this eventually stating that talking about his concerns makes him feel as though bad things will occur. Describes a close group of friends in college and playing in a band with friends but reports he hasn't been able to maintain his friendships due to his worsening mood over the last six months. His anxiety has led to agoraphobia with Joaquim rarely leaving his house since August. He reports only leaving once a week to see friends initially but eventually "lost encouraged to do so". He estimates he had not left the house in the last 3 to 4 weeks before coming to the hospital last night. His isolation has resulted in worsening mood symptoms. He reports a total loss of appetite and difficulty eating due to what he describes as "general existential tear". Joaquim also experiences depersonalization and derealization feeling that everything he understands does not add up with reality anymore. He endorses severe depression as a result of his anxiety and also due to the state of the world. He's had issues sleeping, low appetite, hopelessness, helple ssness, low self-worth, guilt and SI though states he would never act on these thoughts as it would negatively impact his family. He describes not understanding how anyone could not be depressed with the current state of things. Joaquim reports nightly night terrors where he wakes up short of breath and sweaty. He also experienced daily flashbacks, which have increased since his admission to the hospital. He describes his mental health as having "spiraled into something I do not understand" over the past 6 months leading to "idiosyncratic and absurd behaviors that have made it impossible to maintain friendships and relationships". He expresses significant distress about his current hospitalization stating that his previous admission in 2017 "ruined his life" and left him feeling uncomforta ble and scared. Despite this he acknowledges the need for treatment to improve his condition and relationships with others and that he is here to help with the people he lops. He reports discontinuing his psychiatric medications about 6 months ago which included Lamictal and Effexor. He has tried various medications with limited effectiveness or side effects. He is willing to try new medications and engage in outpatient therapy upon discharge. He has a history of substance use to cope with his symptoms at times but states he has not used alcohol for about a year and no other substance use. Psychiatric review of symptoms notable for anxiety depression and panic attacks mood swings intrusive thoughts flashbacks night terrors derealization depersonalization. History of OCD tendencies and PTSD symptoms. Possible history of hypomania though seems the symptoms more were on a time course of a few hours rather than lasting for days of the time. He identifies target symptoms of: "I just want to be stable so I can go build a simple life". He finds his anxiety, depression and fear makes it "so words have double meanings and things have a different meaning then they should". He descri bes being very socially isolated and that "the paranoia" and "feeling of being on the outside of some big joke" is what he wants to fix. He notes a lot of mood fluctuations thought the day typically "a lot of terror and confusion". He "becomes scared of small things". Psychiatric ROS notable for no current nor history of symptoms of self-harm (though did pick skin at times due to acne). In the last month he's had periods of less need for sleep and wonders about influence in the past of making him have higher energy and use substances but no other history of dylan. Reports PTSD from past traumatic experiences with derealization, night terrors (nightly), flashbacks (limited in the last few weeks), avoidance. History of poor appetite but no purposeful restriction. Physical Exam Mental Examination Appearance: Disheveled Eye Contact: Maintains Eye Contact Motor Behavior: Unremarkable Speech: Normal Mood: Anxious Affect: Anxious Thought Process: Goal Oriented Hallucinations: None Insight: Good Judgement: Good Psychiatric Orientation: alert and oriented x 3 Apperance: appropriately dressed and appropriately groomed Eye Contact: good eye contact and + poor eye contact Motor Behavior: no abnormal motor movements Speech: normal rate/rhythm/volume of speech Affect: + anxious affect Mood: + anxious mood Thought Process: goal directed thought process, linear/logical thought process, clear/coherent thought process and + circumstantial thought process Thought Content: reality based without delusions Suicidal Thoughts: denies suicidal thoughts, denies suicidal plan and denies suicidal intent Homicidal Thoughts: denies homicidal thoughts Hallucinations: no auditory hallucinations and no visual hallucinations Cognition: recent memory grossly intact, remote memory grossly intact, attention grossly intact and language grossly intact Estimated Intelligence: consistent with education level Insight: good insight Judgment: + fair judgement Vital Signs (Past 24 Hours) Last Vital Signs Temp 36.5 C 02/23/25 11:43 Pulse 88 02/23/25 11:43 Resp 19 02/23/25 11:43 BP 125/88 02/23/25 12:32 Pulse Ox 100 02/23/25 11:43 O2 Del Method Room Air 02/23/25 06:30 Principal Diagnosis Bipolar Disorder Type II Psychiatric Data Psychiatric Data See daily stay summary. In short, patient was engaged with the social/therapeutic milieu of the unit, safety was maintained and the patient was cooperative with care. Medication changes included restarting and titrating clozapine 100mg HS for schizoaffective disorder and they tolerated this well. Baseline labs of fasting glucose, fasting lipid profile, and weight were performed. Recommend repeat weight in one month. Recommend repeat fasting glucose, HbA1c and fasting lipid profile every 12 weeks and then annually. If symptoms arise recommend checking BP, EKG, prolactin level as clinically indicated or relevant. A support session was held and safety plan was completed prior to discharge. They participated in safety planning and in discussions about ways to seek support and recognizing warning signs and utilizing coping skills. Reviewed ways to have their safety plan and contacts easily available should thoughts of SI re-emerge in the future. Reviewed importance of seeking emergency care should SI intensify, worsen or should they feel unsafe in the future which they agree to do. On the day of discharge they stated their mood was "pretty well" and remained future-oriented including spending time with family, eating favorite meals, relaxing and engaging in aftercare appointments for psychiatry, therapy and case management. Day of Discharge Assessment Today the patient voices readiness for discharge. They note improvement in mood and anxiety. They deny thoughts of harm to self or others. Thoughts are organized and they are clinically improved from admission. There is no evidence of psychosis. They improved in the hospital with support and medication adjustments. They agree to take medications as prescribed and keep follow-up appointments. At the time of the discharge they are deemed to be stable and appropriate for outpatient level of care. They are not deemed to be at imminent risk of harm to self or others. They are aware of emergency and crisis services. Knows to call 911 or go to nearest emergency care center if in a crisis which cannot be handled as an outpatient. Suicide risk assessment: Acute risk is low given improvement in mood and denial of SI, lack of access to lethal means, hopefulness and improvement in psychosis. Chronic risk is moderate given some non-modifiable risk factors: psychiatric co-morbid diagnoses, prior attempt, prior psychiatric hospitalizations, mood disorder, schizophrenia but also with protective factors including good social support, sense of responsibility to family and social supports, outpatient care in place, positive coping skills, positive problem solving, willingness to engage with treatment and self-observation. Counseled on ways to reduce acute and chronic risk including engaging with outpatient providers, using safety plan if needed, utilizing supports, taking medication, and using coping skills. Modifiable risk factors were addressed during hospitalization through development of new coping skills, support meeting, safety planning, and medication adjustments. Acute risk of harm to others is low given denial of HI, resolution of psychosis, no aggression or agitated behaviors and outpatient providers. Discharge physical exam: See admission H&P, MSE per above and day of discharge summary. Overall, I spent a total of 35 minutes on this case including meeting with the patient, reviewing the chart, nursing report, multidisciplinary team meeting, discharge orders, anticipatory planning, safety planning, risk assessment and documentation. Discharge medication: Buspar 10mg tid, Klonopin 0.5mg qhs, Latuda 40mg qhs, Remeron 15mg qhs, Propanolol 10 mg tid and Sertraline 10mg daily. Pt tolerated this well. A family session was held and safety plan was completed prior to russell del rosario. Day of Discharge Assessment Today the patient voices readiness for discharge. They note improvement in mood and deny thoughts to harm self or others. Thoughts remain organized and they are improved from admission. There is no evidence of psychosis. They agree to take mediations as prescribed and keep follow-up appointments. They are stable for discharge to outpatient level of care. Transition of Care Transition Of Care Record: was reviewed with the patient Advance Directives Advance Directives Information Provided: Yes Advance Directives: No Mental Health Advance Directive: No Advance Directives on File: No Living Will: No Power of Financial Quantitative Analyst: No Advance Directives Reason:: Declines as Mental Health Visit. Risk Factors Assessment Male: Yes : Yes Do You Have Access To A Gun?: No Health Problems: No Mental Health Diagnoses: Yes Substance Use Disorders: No Previous Attempt: No Family History of Suicide: No Previous Psychiatric Hospitalization: Yes Hopelessness: Yes Protective Factors Assessment : No Responsible for Young Children: No Employed: No Stable Relationships: Yes Supportive Family: Yes Antipsychotic Medications Mood stabilization for Bipolar II Disorder. Total Time Total Time Spent: Greater Than 30 Minutes Discharge Data Lab Results 02/15/25 02/15/25 02/15/25 11:50 11:56 12:20 WBC 9.65 RBC 5.48 Hgb 15.8 Hct 46.2 MCV 84.3 MCH 28.8 MCHC 34.2 RDW Std Deviation 36.8 RDW Coeff of Fabiola 12.1 Plt Count 353 MPV 11.0 Immature Gran % (Auto) 0.2 Neut % (Auto) 75.9 Lymph % (Auto) 17.7 [place] % (Auto) 5.5 Eos % (Auto) 0.3 Baso % (Auto) 0.4 Neut # (Auto) 7.32 H Lymph # (Auto) 1.71 [place] # (Auto) 0.53 Eos # (Auto) 0.03 Baso # (Auto) 0.04 Immature Gran # (Auto) 0.02 Sodium 136 Potassium 4.2 Chloride 101 Carbon Dioxide 21 Anion Gap 14 H BUN 11 Creatinine 0.78 Est Cr Clr Drug Dosing 158.9 eGFR 126.92 BUN/Creatinine Ratio 14.1 Glucose 83 POC Glucose Estimat Average Glucose Hemoglobin A1c Calcium 10.0 Total Bilirubin 1.7 H AST 19 ALT 26 Alkaline Phosphatase 97 Total Protein 8.7 H Albumin 5.3 H Globulin 3.4 Albumin/Globulin Ratio 1.6 Triglycerides Cholesterol LDL Cholesterol, Calc VLDL Cholesterol, Calc HDL Cholesterol Cholesterol/HDL Ratio TSH 1.214 Urine Color Yellow Urine Appearance Clear Urine pH 5.5 Ur Specific [place] 1.011 Urine Protein Negative Urine Glucose (UA) Negative Urine Ketones 4+ H Urine Blood Negative Urine Nitrite Negative Urine Bilirubin Negative Urine Urobilinogen Negative Ur Leukocyte Esterase Negative Urine Comment Salicylates < 3.0 L Urine Opiates Screen Neg Ur Methadone, Qual Neg Urine Fentanyl Screen Neg Acetaminophen < 3 L Urine Barbiturates Neg Ur Phencyclidine (PCP) Neg U Amphetamin/Meth Scrn Neg MDMA (Ecstasy) Screen Neg U Benzodiazepines Scrn Neg Ur Cocaine Metabolite Neg U Marijuana (THC) Screen Neg Ethyl Alcohol mg/dL < 10.0 SARS-CoV-2, RNA, NAAT NEGATIVE 02/18/25 02/21/25 18:04 07:47 WBC RBC Hgb Hct MCV MCH MCHC RDW Std Deviation RDW Coeff of Fabiola Plt Count MPV Immature Gran % (Auto) Neut % (Auto) Lymph % (Auto) [place] % (Auto) Eos % (Auto) Baso % (Auto) Neut # (Auto) Lymph # (Auto) [place] # (Auto) Eos # (Auto) Baso # (Auto) Immature Gran # (Auto) Sodium Potassium Chloride Carbon Dioxide Anion Gap BUN Creatinine Est Cr Clr Drug Dosing eGFR BUN/Creatinine Ratio Glucose POC Glucose 138 H Estimat Average Glucose 108 Hemoglobin A1c 5.4 Calcium Total Bilirubin AST ALT Alkaline Phosphatase Total Protein Albumin Globulin Albumin/Globulin Ratio Triglycerides 72 Cholesterol 106 LDL Cholesterol, Calc 56 VLDL Cholesterol, Calc 14 HDL Cholesterol 36 Cholesterol/HDL Ratio 2.9 TSH Urine Color Urine Appearance Urine pH Ur Specific [place] Urine Protein Urine Glucose (UA) Urine Ketones Urine Blood Urine Nitrite Urine Bilirubin Urine Urobilinogen Ur Leukocyte Esterase Urine Comment Salicylates Urine Opiates Screen Ur Methadone, Qual Urine Fentanyl Screen Acetaminophen Urine Barbiturates Ur Phencyclidine (PCP) U Amphetamin/Meth Scrn MDMA (Ecstasy) Screen U Benzodiazepines Scrn Ur Cocaine Metabolite U Marijuana (THC) Screen Ethyl Alcohol mg/dL SARS-CoV-2, RNA, NAAT Hospital Course (1) Depression with suicidal ideation: (2) MDD (major depressive disorder), recurrent episode, severe: (3) Obsessive compulsive disorder: (4) Generalized anxiety disorder with panic attacks: (5) Panic disorder with agoraphobia and severe panic attacks: (6) Insomnia: (7) Poor appetite: (8) Derealization: Plan 02/23/25. Discharged home today. E-prescribed Klonopin to 0.5mg daily with plan to stop in a week. Advised on risk of tolerance and abuse potential. 02/22/25 Reduce Klonopin to 0.5mg qhs. Plan to discharge home on 0.5mg for 1 week to complete taper. Continue Latuda 40mg daily with meals. Continue other medication at current doses. Has been referred for neurology follow up and for neuropsychological testing as outpatient. Discharge tomorrow. 02/20/25 Fasting lipids, HBA1c ordered. Started Latuda 20mg daily. Continue other medication at current doses. Recommend CBT for anxiety/depression and TFCBT/Prolonged Exposure for trauma. Pt has been referred for neuropsychological and psychological testing post- discharge to clarify diagnosis 02/19/25: Klonopin 0.5mg tid scheduled for anxiety Increase Buspar to 10 mg tid. 02/18/25: Continue current medication regimen Mirtazapine 15mg qhs, Buspar 5 mg tid, Propanolol 10 mg tid and Zoloft 50mg daily. Pt is willing to extend his admission to allow further monitoring and medication adjustment. ELOS 2-3 days. 02/17/2025: -Start sertraline 50mg daily 02/16/2025: The patient was admitted to the [facility] ([facility] inpatient mental health unit) on q15 min checks (behavioral with suicide precautions) for safety. The patient will participate in group, recreational, and milieu therapies and will be offered additional individual and family sessions as clinically appropriate. -Start propranolol 10mg TID -Start buspar 5mg TID -Ativan 0.5mg BID prn for panic attacks -mirtazapine 15mg HS -plan for SSRI vs SNRI tomorrow pending his discussion with family -SW to look into outpatient therapy options such as IOP for CBT -Symptom questionnaires provided -Outpatient neurology referral vs inpatient EEG consideration Mental Health & Subst Abuse Tx Psychiatrist Name of Psychiatrist: [facility]'s Date Of Appointment With Psychiatric Provider: 03/05/2025 Time of Appointment with Psychiatrist: 2:50PM - 1.5 hour intial session Psychiatric Appointment Comment: [facility] - Cancel 24 hours in advance - $20 Copay Therapist Name of Therapist: [facility] Therapist's Phone Number: Date of Therapist Appointment: 02/26/25 Time of Therapist Appointment: 1:00PM Therapy Appointment Comment: [facility] indicated that an email was sent to pt. email. Farm Manager Name of Farm Manager: [employer] unit supervisor case loading Theresa Coughlin Phone Number for Farm Manager: [phone] Post Discharge Appointments Primary Care Physician Name Of Family Doctor/PCP: Dr. Dale Rankin Primary [facility] Date of Future Appointment with PCP: 02/27/25 Time of Appointment with PCP: 1:00 PM Provider Appointment Comment: Arrive at 12:45 with Alma Delia Plummer Neurologist Name of Neurologist: [facility]- Dr. Kat Neurologist's Date of Appointment with Neurologist: 06/15/25 Time of Appointment with Neurologist: 9 AM Specialist Name of Specialist: Chucho Hernandez Phone Number for Specialist: [phone] Specialty Appointment Comment: Neuropsych testing will call patient to schedule. Contact Information Discharge Discharge Address: [address] [place] [address] Discharge Plan Discharge Items Patient Disposition: Home - Self-Care Reason For Visit: UNSPECIFIED MOOD DISORDER Discharge Diagnosis: Bipolar Disorder Type 2 Generalized Anxiety Disorder. PTSD Cannabis Use Disorder in Full Sustained Remission Alcohol Use Disorder in Full Sustained Remission Condition on Discharge: Fair Health Concerns: r/o Psychogenic Non-Epileptic Seizures. Activity: Resume your previous activity Lifting: Gradually increase as tolerated Bathing: No limitations Sexual Activity: When tolerated Exercise/Sports: As tolerated Driving/Machine Use: No limitations Weightbearing: Full weightbearing Non-emergency contact: Psychiatrist, Therapist and Ticket Printer Call non-emergency contact if: you have any medication questions and your symptoms worsen Follow-up/Referrals: PCP,NO [Primary Care Provider] - Diet: Regular Fluids: 2000ml (8 cups) Diet Comment: No limitations Addtl Attending Provider Instructions: Continue current medication (stop Klonopin after a week). Addtl Net Wpf Developer Provider Instructions: Continue current medication. Stop Klonopin after a week. Standard monitoring for antipsychotic medications (Latuda) Follow HbA1c and lipid panel quarterly. Check weight monthly. Ensure Abnormal Involuntary Movement Scale (AIMS) is completed annually. Ensure outpatient therapy (CBT or Prolonged Exposure for PTSD). Pending Studies at Discharge: No Stand-Alone Forms: [facility] [employer], Smoking Cessation Medications and DC Order Prescriptions: New buspirone 5 mg Tablet 10 mg PO TID 30 Days Qty: 180 0RF clonazepam 0.5 mg Tablet 0.5 mg PO HS 7 Days Qty: 7 0RF sertraline 100 mg Tablet 100 mg PO QAM 30 Days Qty: 30 0RF propranolol 10 mg Tablet 10 mg PO TID 30 Days Qty: 90 0RF mirtazapine 15 mg Tablet 15 mg PO HS 30 Days Qty: 30 0RF lurasidone 20 mg Tablet 40 mg PO DAILY 30 Days Qty: 60 0RF Continued DESLORATADINE (Clarinex) 5 MG tablet 5 mg PO DAILY Qty: 0 MONTELUKAST SODIUM (SINGULAIR) 10 MG tablet 10 mg PO DAILY Qty: 0 Discontinued LORAZEPAM (ATIVAN) 0.5 MG tablet 0.5 mg PO TID Qty: 0 VENLAFAXINE HCL (EFFEXOR XR) 75 MG capsule 1 cap PO BID Qty: 60 0RF LAMOTRIGINE 25 MG tablet 25 mg PO QAM Qty: 30 0RF Discharge Orders: Discharge Order (Routine); Ordered 02/23/25 Ordered By: Deidra Vazquez/Other Patient Handouts: Panic Disorder, Treating Agoraphobia Admission Data Admit Date/Time: 02/15/25 17:23 Attending Provider: Kae Raines Admit Provider: Kae Raines Primary Care Provider: PCP,NO Other Interventions: Discharge Summary Assessment (RN) Last Done: 02/23/25 11:43 C[place] [address] D/C day mgmt > 30 min Patient Type Established History Expanded Problem Focused Medical Decision Making Moderate Complexity Diagnoses Depression with suicidal ideation F32.A; R45.851 MDD (major depressive disorder), recurrent episode, severe F33.2 Obsessive compulsive disorder F42.9 Generalized anxiety disorder with panic attacks F41.1; F41.0 Panic disorder with agoraphobia and severe panic attacks F40.01 Insomnia G47.00 Poor appetite R63.0 Derealization F48.1 Time Spent (min) 35
== END 2025-02-23 13:40 | disposition home or self-care (01) | DRG 885 ==
LOC: ED 11:30 → 3S 17:20